=== PATIENT | female | born 1980 | race Caucasian/White ===

== ENCOUNTER → 2020-12-04 | Outpatient (CLI) | payer BC | LOC: HEART 5 14:48 | DX: I20.9 Angina pectoris, unspecified (principal); R55 Syncope and collapse; R00.2 Palpitations ==

== ENCOUNTER → 2020-12-27 | Outpatient (CLI) | payer BC | LOC: HEART 5 08:13 | DX: I20.9 Angina pectoris, unspecified (principal); I05.8 Other rheumatic mitral valve diseases | CPT/HCPCS: 78452; 93306; A9502 ==

== ENCOUNTER → 2021-04-12 | Outpatient (CLI) | payer BC | LOC: EXRD 10:52 | DX: M54.2 Cervicalgia (principal); M25.612 Stiffness of left shoulder, not elsewhere classified; M25.512 Pain in left shoulder | CPT/HCPCS: 72040; 73030 ==